=== PATIENT | female | born 1990 | race Caucasian/White ===

== ENCOUNTER 2017-03-26 09:24 | Emergency (ER) | payer OTHER ==
[~2017-03-26] VITALS: Ht 160 cm; Wt 73.5 kg
[~2017-03-26 09:24] MED LIST: HUMALOG100 U/ML SQ
[2017-03-26] MEDS ORDERED: ACIDOPHILUS1 EAC3 PO (14:24)
== END 2017-03-26 15:00 | disposition home or self-care (01) ==
LOC: ER 09:24
DX: K52.9 Noninfective gastroenteritis and colitis, unspecified (principal)

== ENCOUNTER 2023-10-29 07:40 | Day surgery (SDC) | payer OTHER ==
[2023-10-25 12:38] LABS: URINE APPEARANCE Clear; URINE BILIRRUBIN Negative (NEGATIVE); URINE BLOOD Negative; URINE COLOR Yellow; URINE KETONE Negative (NEGATIVE); URINE LEUKOCYTE Negative; URINE NITRATE Negative; URINE UROBILINOGEN 0.2 E.U./dl
[2023-10-25 12:42] LABS: URINE BACTERIA 411.9 uL (0.0-1933); URINE EPITHELIAL CELLS 20.2 uL (0.0-38.8); URINE RBC 5.4 uL (0.0-20.8); URINE WBC 17.7 uL (0.0-23.2)
[2023-10-25 12:46] LABS: URINE GLUCOSE 100 MG/DL (NEGATIVE); URINE PROTEIN 300 (NEGATIVE)
[2023-10-25 12:52] LABS: HEMATOCRIT 34.1 % (36.0-45.00); HEMOGLOBIN 11.5 g/dL (12.0-15.00); MEAN CELL VOLUME 91.9 fL (80.00-100.00); MEAN CORPUSCULAR HEMOGLOBIN 31.1 pg (27.00-32.0); MEAN CORPUSCULAR HGB CONC 33.8 g/dl (32.0-36.0); PLATELET COUNT 393 K/uL (150-450); RED BLOOD COUNT 3.72 M/uL (4.00-6.00); RED CELL DISTRIBUTION WIDTH 14.8 % (11.5-14.5)
[2023-10-25 13:01] LABS: BILIRUBIN TOTAL 0.4 mg/dL (0.3-1.2); CALCIUM 9.8 mg/dL (8.5-10.1); CREATININE SERUM 3.71 mg/dL (0.55-1.02); GFR 14.06; GLOBULINA 3.7 G/DL (2.4-3.5); INR 0.94; PARTIAL THROMBOPLASTIN TIME 27.9 SECONDS (22.0-34.0); POTASSIUM 5.21 mEq/L (3.5-5.1); TOTAL PROTEIN 7.7 gm/dL (6.4-8.2)
[2023-10-25 13:20] LABS: PROTHROMBIN TIME 9.9 SECONDS (9.0-11.5)
[~2023-10-29 07:40] MED LIST changes: +ACIDOPHILUS1 EAC3 PO; +COZAAR50 MG PO; +NIFEDIPINE20 MG PO
[2023-10-29] MEDS ORDERED: CEFAZOLIN SODIUM 1,000 MG VIAL ONE (16:43)
== END 2023-10-29 21:00 | disposition home or self-care (01) ==
LOC: CIR.AMB 07:40
PROVIDERS: ATTEND Orthopaedic Surgery Hand Surgery
DX: M65.841 Other synovitis and tenosynovitis, right hand (principal); E11.9 Type 2 diabetes mellitus without complications; I10 Essential (primary) hypertension